=== PATIENT | female | born 1975 | race Caucasian/White ===

== ENCOUNTER 2018-03-08 12:53 | Inpatient (IN) | payer MEDICAID, OTHER ==
[2018-03-08] MEDS ORDERED: ZIPRASIDONE 20 MG VIAL IM STA (13:41)
[2018-03-08] MEDS ORDERED: LORazepam 2 MG/ML INJ IM STA (13:41)
[2018-03-08 14:41] LABS: Amphetamine Screen,Urine Not Detected (NotDetected); Barbiturate Screen,Urine Not Detected (NotDetected); Benzodiazepines Screen,Urine Not Detected (NotDetected); Cocaine Screen,Urine Not Detected (NotDetected); Methadone Screen, Urine Not Detected (NotDetected); Opiate Screen,Urine Not Detected (NotDetected); Oxycodone Screen, Urine Not Detected (NotDetected); Phencyclidine Screen,Urine Not Detected (NotDetected); Tricyclic Antidepressant,Urine Not Detected (NotDetected); Urn Cannabinoid Scrn Detected (NotDetected)
--- NOTE | 2018-03-08 14:46 | ED ---
General Adult HPI - General Chief complaint: Psychiatric Symptoms Stated complaint: Mental Health Time Seen by Provider: 03/08/18 13:08 Source: patient, RN notes reviewed Mode of arrival: ambulatory Limitations: no limitations - History of Present Illness Initial comments: Patient is a 42-year-old female presenting to the emergency department with police escort for agitation. Patient reportedly was at a local restaurant/bar. Patient is very agitated on arrival and limiting evaluation. Patient was verbally abusive. Patient is angry that she is in the emergency department. After medication patient does settle down and is able to hold a conversation. Patient does admit to not sleeping well for the past several days. Patient does admit to having some racing thoughts. Patient has agitation regarding her children's father. She states he is very controlling. Patient does have a history of mental health disease however has been off her medications for more than a year now and overall been doing well. No suicidal or homicidal thoughts. No alcohol or street drug use. No hallucinations. No physical complaints. - Related Data Home Medications Medication Instructions Recorded Confirmed No Known Home Medications [No 03/08/18 03/08/18 Known Home Medications] Allergies Allergy/AdvReac Type Severity Reaction Status Date / Time latex Allergy Itching Verified 03/08/18 23:50 Review of Systems ROS Statement: Those systems with pertinent positive or pertinent negative responses have been documented in the HPI. ROS Other: All systems not noted in ROS Statement are negative. Constitutional: Denies: fever Eyes: Denies: eye pain ENT: Denies: ear pain Respiratory: Denies: cough Cardiovascular: Denies: chest pain Endocrine: Denies: fatigue Gastrointestinal: Denies: abdominal pain Genitourinary: Denies: dysuria Musculoskeletal: Denies: back pain Skin: Denies: rash Neurological: Denies: weakness Psychiatric: Denies: suicidal thoughts Past Medical History Past Medical History: Unable to Obtain History of Any Multi-Drug Resistant Organisms: None Reported Past Surgical History: Section Past Anesthesia/Blood Transfusion Reactions: No Reported Reaction Past Psychological History: Depression Smoking Status: Former smoker Past Alcohol Use History: Occasional Past Drug Use History: None Reported General Exam Limitations: no limitations General appearance: alert Head exam: Present: atraumatic Eye exam: Present: normal appearance, PERRL Neck exam: Present: normal inspection Respiratory exam: Present: normal lung sounds bilaterally Cardiovascular Exam: Present: regular rate, normal rhythm GI/Abdominal exam: Present: soft. Absent: tenderness Neurological exam: Present: alert. Absent: motor sensory deficit Psychiatric exam: Present: agitated Skin exam: Present: normal color Course Vital Signs 03/08/18 03/08/18 03/08/18 13:00 20:00 22:03 Temperature 98 F 98.5 F Pulse Rate 84 106 H 95 Respiratory 18 18 18 Rate Blood Pressure 136/78 121/71 93/71 O2 Sat by Pulse 99 99 100 Oximetry Medical Decision Making - Lab Data Result diagrams: 03/09/18 11:15 03/09/18 11:13 Lab Results 03/08/18 Range/Units 14:03 Urine Opiates Screen Not Detected (NotDetected) Ur Oxycodone Screen Not Detected (NotDetected) Urine Methadone Screen Not Detected (NotDetected) Ur Propoxyphene Screen Not Detected (NotDetected) Ur Barbiturates Screen Not Detected (NotDetected) U Tricyclic Antidepress Not Detected (NotDetected) Ur Phencyclidine Scrn Not Detected (NotDetected) Ur Amphetamines Screen Not Detected (NotDetected) U Methamphetamines Scrn Not Detected (NotDetected) U Benzodiazepines Scrn Not Detected (NotDetected) Urine Cocaine Screen Not Detected (NotDetected) U Marijuana (THC) Screen Detected H (NotDetected) Disposition Clinical Impression: Psychosis Disposition: TRANSFER TO PSYCH HOSP/UNIT Is patient prescribed a controlled substance at d/c from ED?: No
[2018-03-08] MEDS ORDERED: MAG HYDROX/AL HYDROX/SIMETH 30 ML CUP PO PRN (22:15)
[2018-03-08] MEDS ORDERED: ZIPRASIDONE 20 MG VIAL IM PRN (22:15)
[2018-03-08] MEDS ORDERED: LORazepam 2 MG/ML INJ IM PRN (22:17)
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
[2018-03-09] MEDS: ARIPiprazole 10 MG TAB PO SCH (09:55)
[2018-03-09] MEDS: OXcarbazepine 300 MG TAB PO SCH ×2 (09:55→21:43)
[2018-03-09 11:28] LABS: Basophils # (A) 0.1 k/uL (0-0.2); Basophils % (A) 1 %; Eosinophils # (A) 0.2 k/uL (0-0.7); Eosinophils % (A) 2 %; HCT 37.5 % (34.0-46.0); HGB 12.8 gm/dL (11.4-16.0); Lymphocytes % (A) 31 %; MCH 31.1 pg (25.0-35.0); MCHC 34.2 g/dL (31.0-37.0); MCV 90.7 fL (80.0-100.0); Mean Platelet Volume 7.2; Monocytes # (A) 0.5 k/uL (0-1.0); Monocytes % (A) 5 %; Neutrophils # (A) 5.8 k/uL (1.3-7.7); Neutrophils % (A) 60 %; Platelet Count 334 k/uL (150-450); RBC 4.13 m/uL (3.80-5.40); RDW 13.4 % (11.5-15.5); WBC 9.7 k/uL (3.8-10.6)
[2018-03-09 11:40] LABS: ALT 26 U/L (9-52); AST 26 U/L (14-36); Albumin 4.7 g/dL (3.5-5.0); Alkaline Phosphatase 54 U/L (38-126); Anion Gap 17 mmol/L; Blood Urea Nitrogen 13 mg/dL (7-17); Calcium 9.5 mg/dL (8.4-10.2); Carbon Dioxide 22 mmol/L (22-30); Chloride 103 mmol/L (98-107); Glucose 97 mg/dL (74-99); Potassium 3.9 mmol/L (3.5-5.1); Sodium 142 mmol/L (137-145); Total Bilirubin 0.5 mg/dL (0.2-1.3); Total Protein 7.1 g/dL (6.3-8.2)
[2018-03-09] MEDS: NICOTINE 14MG/24HR PATCH TRANSDERM SCH (12:57)
--- NOTE | 2018-03-09 18:58 | CONS ---
CONSULTATION SUBJECTIVE: This is a 42-year-old white female came into the emergency room with a police escort for agitation. She apparently was at a local restaurant bar and she was verbally abusive and angry in the ER, had some racing thoughts she said over the children's father that she had left recently. She has been on history mental health disease. She has been off her medications for over a year. No suicidal or homicidal thoughts. No alcohol or drugs. No hallucinations. She is supposed to be apparently on Pristiq and Lamictal. ALLERGIES: No known drug allergies. REVIEW OF SYSTEMS: Fourteen point review of systems negative except for mentioned in HPI. PAST MEDICAL HISTORY: Bipolar disorder, anxiety, depression. SOCIAL HISTORY: Smoker. PHYSICAL EXAMINATION: Vital signs are stable. Blood pressure 136/70, respiratory 16 to 18, pulse 80 to 84, temp 98, O2 97 to 99%. Labs show positive for marijuana and drug screen, otherwise negative. CARDIOVASCULAR: S1, S2. LUNGS: Clear. GI: Soft. PSYCH: She appears a little bit agitated. Fast speech. ASSESSMENT: Mood disorder, marijuana use, otherwise medically stable. Await psychiatric recommendations. No other home medicines needed except for psychiatric medications. MMODL / IJN: [id number] /
[2018-03-10] MEDS: NICOTINE 14MG/24HR PATCH TRANSDERM SCH (08:55)
[2018-03-10] MEDS: ARIPiprazole 10 MG TAB PO SCH (08:55)
[2018-03-10] MEDS: OXcarbazepine 300 MG TAB PO SCH ×2 (09:38→21:40)
--- NOTE | 2018-03-10 11:53 | P.PN ---
Progress Note - Text Progress Note Date: 03/10/18 Patient was seen for a follow-up examination. She has not been taking her mood stabilizers. She insists that she has agreed to stay here until Wednesday and does not want to take medication. retail worker will call the petitioner to file a new petition and get her papers sent to court since she is refusing to take medications and has history of disruptive and dangerous behavior. This is a white ambulatory female with adequate hygiene. She continues to refuse to take her medication. She is somewhat hyperactive. She has pressured speech and flight of ideas. She is also grandiose and thinks she is doing well and does not need any medication. She denies suicide and homicide thoughts. She is oriented with adequate memory general knowledge etc. Plan: retail worker will contact the petitioner to file another petition, sent her papers to court so that she can be treated. Continue groups and other therapies.
[2018-03-11] MEDS: ARIPiprazole 10 MG TAB PO SCH (09:11)
[2018-03-11] MEDS: NICOTINE 14MG/24HR PATCH TRANSDERM SCH (09:11)
[2018-03-11] MEDS: OXcarbazepine 300 MG TAB PO SCH ×2 (09:11→20:50)
--- NOTE | 2018-03-11 12:08 | P.PN ---
Progress Note - Text Progress Note Date: 03/11/18 Patient was seen for a follow-up examination. She has been refusing to take her medication insisting that she is doing well and does not need any. Counseling has not been effective. When she was told that we had to surrender papers to the court for the metal box maker to decide whether she should be forced to take medication and should be kept here she agreed with that. She continues to be talkative, disruptive in the group etc. This is a white ambulatory female with strong body odor. She gets hyperactive. Her speech is spontaneous pressured with flight of ideas. Her mood is cheerful and affect is labile. She gets tearful quite easily. She denies hallucinations. But she is grandiose with some paranoid thinking. She is oriented with adequate memory. Her insight and judgment are impaired. Plan: Send her papers to the court for the metal box maker to decide whether she should be treated and should have continued hospitalization. Meanwhile continue groups and other therapies.
[2018-03-12] MEDS: NICOTINE 14MG/24HR PATCH TRANSDERM SCH (09:05)
[2018-03-12] MEDS: OXcarbazepine 300 MG TAB PO SCH ×2 (09:07→20:32)
[2018-03-12] MEDS: ARIPiprazole 10 MG TAB PO SCH (09:07)
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
[2018-03-12 22:08] LABS: Amorphous Sediment,Urine Rare /hpf; Appearance,Urine Clear (Clear); Bilirubin,Urine Negative (Negative); Blood,Urine Trace (Negative); Color,Urine Yellow; Glucose,Urine (UA) Negative (Negative); Ketones,Urine Negative (Negative); Leukocyte Esterase,Urine Negative (Negative); Nitrite,Urine Negative (Negative); PH, Urine 6.5 (5.0-8.0); Protein,Urine Negative (Negative); RBC,Urine <1 /hpf (0-5); Squamous Epithelial Cell,Urine 4 /hpf (0-4); Urobilinogen,Urine <2.0 mg/dL (<2.0); WBC,Urine <1 /hpf (0-5)
[2018-03-13] MEDS: NICOTINE 14MG/24HR PATCH TRANSDERM SCH (08:50)
[2018-03-13] MEDS: OXcarbazepine 300 MG TAB PO SCH ×2 (08:51→21:10)
[2018-03-13] MEDS: ARIPiprazole 10 MG TAB PO SCH (08:51)
[2018-03-13] MEDS: LORazepam 1 MG TAB PO PRN (10:31)
--- NOTE | 2018-03-13 18:13 | P.PN ---
Progress Note - Text Progress Note Date: 03/13/18 Interval history: Patient is seen again in cross coverage today. She reports that her mood is doing better today. She feels less fearful today. She does state that she started taking her medication today. Patient states she feels a little bit tired. We discussed that if medication side effect can improve. Mental status exam: She is alert and cooperative with the interview. Her speech is fluent. She is noted to have pen markings on her hands and on her forehead. Says that she was trying to let her roommate know how to get a hold of her. She denies any thoughts of harm to self or others. She does not verbalize any hallucinations. Her thought processes seem to show some disorganization. She does not show any agitation. Mental status exam: We will maintain current psychotropic medication regimen. We'll continue to monitor her compliance. Monitor for any medication side effects. We will monitor her ongoing response to treatment.
[2018-03-14] MEDS: OXcarbazepine 300 MG TAB PO SCH ×3 (09:44→21:18)
[2018-03-14] MEDS: ARIPiprazole 10 MG TAB PO SCH (09:44)
[2018-03-14] MEDS: NICOTINE 14MG/24HR PATCH TRANSDERM SCH (09:44)
--- NOTE | 2018-03-14 12:53 | P.PN ---
Progress Note - Text Progress Note Date: 03/14/18 Patient was seen for a follow-up examination. She had signed her deferral today. She took Trileptal after 12 noon that she didn't take her morning Abilify. She has been hyperactive, intrusive and disruptive in the groups. This is a white ambulatory female with adequate hygiene. She is hyperactive, talkative with pressured speech and flight of ideas. Her mood is cheerful/ elated and affect is labile. She gets tearful quite easily. She continues to deny suicide and homicide thoughts. She feels she is healthy and can do anything she wants to do. She is oriented with adequate memory general knowledge etc. Plan: Continue Abilify 10 mg a day, Trileptal 300 mg twice a day, groups and other therapies.
[2018-03-14] MEDS: LORazepam 1 MG TAB PO PRN (18:12)
[2018-03-15] MEDS: LORazepam 1 MG TAB PO PRN (01:45)
[2018-03-15] MEDS: OXcarbazepine 300 MG TAB PO SCH ×2 (08:50→16:42)
[2018-03-15] MEDS: NICOTINE 14MG/24HR PATCH TRANSDERM SCH (08:50)
[2018-03-15] MEDS: ARIPiprazole 10 MG TAB PO SCH (08:50)
--- NOTE | 2018-03-15 09:53 | P.PN ---
Progress Note - Text Progress Note Date: 03/15/18 Patient was seen for a routine follow-up examination. Patient insists that she has been taking her medication. But according to the records. She never took Abilify and took only one dose of Trileptal on 03/14/2018 at 12:04 PM. Patient says it is too strong and still she took it. She was again counseled about the importance of taking medicine and if she is not taking medicine she will have to go in front of the twist maker on Wednesday. According to the nurses note at 4:15 AM , patient was exercising in the hallway and was trying to look into another patient's room 304. She also had reported of being nervous and received when necessary Ativan. This is a white ambulatory female with adequate hygiene. She is a little hyperactive. Her speech is spontaneous pressured with flight of ideas. Mood is elated and affect is labile. She gets tearful quite easily. She continues to deny suicide and homicide thoughts. She is well oriented with adequate memory, general knowledge etc. Plan: Continue Abilify and Trileptal, groups and other therapies. Nursing staff or the social service technician will contact the court about patient's noncompliance so that she can have a hearing on Wednesday the .
[2018-03-16] MEDS: OXcarbazepine 300 MG TAB PO SCH ×2 (09:21→20:14)
[2018-03-16] MEDS: NICOTINE 14MG/24HR PATCH TRANSDERM SCH (09:21)
[2018-03-16] MEDS: ARIPiprazole 10 MG TAB PO SCH (09:21)
--- NOTE | 2018-03-16 12:15 | P.PN ---
Progress Note - Text Progress Note Date: 03/16/18 Patient was seen for a follow-up examination. She took her medicine yesterday evening and this morning. She does not have any adverse effects so far. She attends groups and sometimes becomes disruptive. She does not have any particular complaints or concerns. This is a white ambulatory female with good hygiene. She gets hyperactive, wanted to look into the books and papers on the desk. She is fairly cooperative. Her speech is spontaneous, pressured with flight of ideas. She really has difficulty time in focusing on the topic discussed. Her mood is cheerful and affect is labile. She gets tearful very easily. She denies hallucinations. But, she gets paranoid and does not trust others. She denies suicide and homicide thoughts. She is well oriented with adequate memory general fund of knowledge etc. Plan: Continue Abilify and Trileptal, groups and other activities. She is likely to have a court hearing on Wednesday.
[2018-03-17] MEDS: ARIPiprazole 10 MG TAB PO SCH (08:41)
[2018-03-17] MEDS: OXcarbazepine 300 MG TAB PO SCH ×2 (08:41→21:11)
[2018-03-17] MEDS: NICOTINE 14MG/24HR PATCH TRANSDERM SCH (08:41)
--- NOTE | 2018-03-17 12:04 | P.PN ---
Progress Note - Text Progress Note Date: 03/17/18 Patient was seen for a routine follow-up examination. She has been attending groups and taking her medications. She said she feels better since she is taking medications. No major behavioral problems. Denies any adverse effects from medications. This is a white ambulatory female with adequate hygiene. She is polite and cooperative. She does not show any psychomotor agitation or retardation. But she is still hyperactive. Her speech is spontaneous pressured with flight of ideas. Her mood is cheerful and affect is appropriate. She continues to deny suicide and homicide thoughts and hallucinations. She does not seem to have any overt grandiose thinking. But she appears to have some paranoid thinking. She is well oriented with good memory concentration general knowledge etc. Plan: Continue Abilify, Trileptal, groups and other therapies.
[2018-03-18] MEDS: NICOTINE 14MG/24HR PATCH TRANSDERM SCH (08:41)
[2018-03-18] MEDS: OXcarbazepine 300 MG TAB PO SCH ×2 (08:41→19:56)
[2018-03-18] MEDS: ARIPiprazole 10 MG TAB PO SCH (08:41)
[2018-03-18] MEDS ORDERED: ARIPiprazole 400 MG VIAL (NO CHARGE) IM ONE (11:02)
--- NOTE | 2018-03-18 11:04 | P.PN ---
Progress Note - Text Progress Note Date: 03/18/18 Patient was seen for a follow-up examination. She had gone to court this morning and apparently she had stipulated. She continues to be hyperactive and at times wears clothes rather in a bizarre fashion. She attends groups. She has been taking her medication without any adverse effect. This is a white ambulatory female with good hygiene. She continues to get hyperactive and talkative with pressured speech and flight of ideas. Her mood is elated. Affect is appropriate to the thought content. She denies hallucinations, but, she makes paranoid statements at times. She denies suicide and homicide thoughts. She is well oriented with adequate memory concentration etc. She was counseled about taking Abilify maintena and she agreed to try it. Plan: Continue Abilify and Trileptal, groups and other activities start on Abilify Maintena.
[2018-03-18] MEDS: MAGNESIUM HYDROXIDE 2,400 MG/10 ML CUP PO PRN (16:48)
[2018-03-19] MEDS: ACETAMINOPHEN TAB 325 MG TAB PO PRN ×2 (05:12→13:47)
[2018-03-19] MEDS: NICOTINE 14MG/24HR PATCH TRANSDERM SCH (08:52)
[2018-03-19] MEDS: ARIPiprazole 10 MG TAB PO SCH (08:52)
[2018-03-19] MEDS: OXcarbazepine 300 MG TAB PO SCH ×2 (08:53→19:55)
[2018-03-19] MEDS: ARTIFICIAL TEARS-HYPROMELLOSE DROPS 15 ML BTL BOTH EYES PRN (12:41)
--- NOTE | 2018-03-19 13:07 | P.PN ---
Progress Note - Text Interval history: The patient is found in her room she follows me to an interview room. She is diagnosed with bipolar disorder and is noted to have symptoms of psychosis. She is on Trileptal for mood stabilization and oral Abilify. It appears she received Abilify maintena yesterday. She reports that she is improving. She feels safe here in the hospital. She describes a desire to be discharged soon. She reports that she is sleeping appetite is stable. Mental status exam: The patient is a female she is alert she's cooperative. She has spontaneous speech. Content of speech is overly inclusive. She is directable in the session. She is reporting no suicidal or homicidal ideation. She reports no auditory or visual hallucinations. She denies having any specific delusions although documentation suggests she reported some yesterday. She demonstrates no verbal or physical aggressiveness no abnormal involuntary movements. Plan: The patient seems to be improving during the course of the hospitalization. We will encourage her continued participation in the milieu we will monitor her for safety. Vital signs reviewed. She has no questions regarding her psychotropic medication.
[2018-03-19] MEDS: MAGNESIUM HYDROXIDE 2,400 MG/10 ML CUP PO PRN (19:55)
[2018-03-20] MEDS: ACETAMINOPHEN TAB 325 MG TAB PO PRN ×4 (03:42→22:03)
[2018-03-20] MEDS: NICOTINE 14MG/24HR PATCH TRANSDERM SCH (08:47)
[2018-03-20] MEDS: OXcarbazepine 300 MG TAB PO SCH ×2 (08:47→20:12)
[2018-03-20] MEDS: ARIPiprazole 10 MG TAB PO SCH (08:47)
[2018-03-20] MEDS: ARTIFICIAL TEARS-HYPROMELLOSE DROPS 15 ML BTL BOTH EYES PRN (09:19)
--- NOTE | 2018-03-20 12:47 | P.PN ---
Progress Note - Text Interval history: The patient is found in the hallway she follows me to an interview room. She indicates she feels bothered by others on the unit and she states she's been rude to them. Staff report that the patient has been provoking a few other peers where she is making derogatory statements. The patient has difficulty explaining this behavior and she does seem more disorganized today in spontaneous conversation. Mental status exam: The patient is cooperative she is directable she does seem to have more disorganization of thought. She is reporting no suicidal or homicidal ideation. She indicates that she feels defensive that others are trying to say or do things to her. She demonstrates no verbal or physical aggressiveness during the session she demonstrates no abnormal involuntary movements. Insight and judgment are impaired. She is endorsing no auditory or visual hallucinations. Plan: The patient will continue on her current psychotropic medications. We will continue to monitor her for safety and encourage her participation in the milieu. She requires continued psychiatric hospitalization.
[2018-03-21] MEDS: LORazepam 1 MG TAB PO PRN (01:19)
[2018-03-21] MEDS: ARTIFICIAL TEARS-HYPROMELLOSE DROPS 15 ML BTL BOTH EYES PRN ×2 (02:15→09:11)
[2018-03-21] MEDS: ACETAMINOPHEN TAB 325 MG TAB PO PRN ×3 (06:21→18:53)
[2018-03-21 08:51] VITALS: BMI 23.3
[2018-03-21] MEDS: OXcarbazepine 300 MG TAB PO SCH ×2 (08:57→20:07)
[2018-03-21] MEDS: NICOTINE 14MG/24HR PATCH TRANSDERM SCH (08:57)
[2018-03-21] MEDS: ARIPiprazole 10 MG TAB PO SCH (08:57)
--- NOTE | 2018-03-21 14:51 | P.PN ---
Subjective Progress Note Date: 03/21/18 Principal diagnosis: Other specified bipolar and related disorder, Borderline personality features, Cannabis use disorder moderate to severe I reviewed the medical record, interviewed the patient and discussed her treatment and treatment plan during team meeting. She a patient of Dr. Tobias who has a history of a bipolar disorder. She received a 60/90 day involuntary treatment order on 03/18/2018. Other patients have complained about her intrusive behavior. Last night, she was in the hallway yelling and swearing at a male peer. Staff reports that she appears paranoid. She did not sleep last night and over the last 6 days slept at the most 4 hours. According to the MAR she's been compliant with staff her prescribed psychotropic medications-Abilify 10 mg daily and Trileptal 300 mg twice a day. She was without complaint or concern. She attributed her behavior as a reaction to other patients on the unit. Similarly, she attributed to her lack of sleep to the activity and on the unit and behavior other patients. Objective - Vital Signs Vital signs: Vital Signs Temp 98.2 F 03/21/18 01:15 Pulse 85 03/21/18 01:15 Resp 14 03/21/18 01:15 BP 126/85 03/21/18 01:15 Pulse Ox 100 03/08/18 22:48 Intake & Output 03/20/18 03/21/18 03/21/18 18:59 06:59 18:59 Weight 58 kg 58 kg - Psychiatric Psychiatric Comment(s): She presented as a neatly groomed and casually dressed 42-year-old [place] female who was pleasant on approach. She was wearing makeup. She made eye contact and appeared to attend to the interview. She had a bright facial expression. She was alert and oriented to person, place and time. She showed no abnormality of psychomotor activity. She was not restless or agitated. She had no abnormal movements. Her speech was pressured. She had no articulation difficulties. Affect was elevated but appropriate. She denied suicidal ideation, wishes or homicidal ideation. She denied feeling hopeless, helpless or worthless. She did not express ideas reference, paranoid ideation or delusional thoughts. She demonstrated flight of ideas but no clang associations or neologisms. She denied hallucinations and did not appear to be responding to internal stimuli. - Labs CBC & Chem 7: 03/09/18 11:15 03/09/18 11:13 Assessment and Plan Assessment: Overall, she is markedly mentally ill and mentally improve from admission. (1) Bipolar disorder Current Visit: No Status: Acute Priority: High Code(s): F31.9 - BIPOLAR DISORDER, UNSPECIFIED SNOMED Code(s): 51067402 Plan: Continue inpatient hospitalization due to severity of the manic symptoms. Continue Abilify 10 mg daily but increase Trileptal to 600 mg twice a day. Continue to monitor for safety and encourage participation in therapeutic groups and activities. Evaluate clinical status response to treatment on a daily basis.
[2018-03-22] MEDS: ACETAMINOPHEN TAB 325 MG TAB PO PRN ×2 (05:29→20:17)
[2018-03-22] MEDS: NICOTINE 14MG/24HR PATCH TRANSDERM SCH (08:08)
[2018-03-22] MEDS: OXcarbazepine 300 MG TAB PO SCH ×2 (08:08→20:15)
[2018-03-22] MEDS: ARIPiprazole 10 MG TAB PO SCH (08:08)
--- NOTE | 2018-03-22 14:28 | P.PN ---
Subjective Progress Note Date: 03/22/18 Principal diagnosis: Other specified bipolar and related disorder, Borderline personality features, Cannabis use disorder moderate to severe I reviewed the medical record, interviewed the patient and discussed her treatment and treatment plan during team meeting. She denied concerns other than discharge. She sought reassurance that she will be able attend her younger daughter's birthday on the . She denied side effects to the increased dose of Trileptal. She attributes her manic episode and this hospitalization to the use of marijuana that she suspects was placed with another drug (her UDS on admission was positive only for cannabinoids). Prior to admission she was using cannabis oil and smoking marijuana. She is attending group and the notes by the group therapist indicates that she is more focused and less restless and intrusive. She alleged that she is sleeping well although the sleep record indicates she only slept 2 hours last night. Objective - Vital Signs Vital signs: Vital Signs Temp 98.2 F 03/22/18 00:10 Pulse 85 03/22/18 00:10 Resp 18 03/22/18 00:10 BP 148/84 03/22/18 00:10 Pulse Ox 99 03/22/18 00:10 Intake & Output 03/21/18 03/22/18 03/22/18 18:59 06:59 18:59 Weight 58 kg - Psychiatric Psychiatric Comment(s): She presented as a neatly groomed and casually dressed 42-year-old Serbian female who was pleasant on approach. She made eye contact and attended to the interview. She had a blunted but bright facial expression. She was alert and oriented to person, place and time. She showed no abnormality of psychomotor activity. She was not restless or agitated. She had no abnormal movements. Her speech was not pressured. She had no articulation difficulties. Affect was blunted and somewhat depressed. She denied suicidal ideation, wishes or homicidal ideation. She denied feeling hopeless, helpless or worthless. She did not express ideas reference, paranoid ideation or delusional thoughts. She demonstrated flight of ideas but no clang associations or neologisms. She denied hallucinations and did not appear to be responding to internal stimuli. - Labs CBC & Chem 7: 03/09/18 11:15 03/09/18 11:13 Assessment and Plan Assessment: Overall, she is moderately mentally ill and much improve from admission. (1) Bipolar disorder Current Visit: No Status: Acute Priority: High Code(s): F31.9 - BIPOLAR DISORDER, UNSPECIFIED SNOMED Code(s): 89912430 Plan: Continue inpatient hospitalization due to severity of the manic symptoms. Continue Abilify 10 mg daily and Trileptal to 600 mg twice a day. Consider obtaining an oxcarbazepine level prior to discharge. Continue to monitor for safety and encourage participation in therapeutic groups and activities. Evaluate clinical status response to treatment on a daily basis.
[2018-03-23] MEDS: ARTIFICIAL TEARS-HYPROMELLOSE DROPS 15 ML BTL BOTH EYES PRN (08:03)
[2018-03-23] MEDS: OXcarbazepine 300 MG TAB PO SCH ×2 (08:04→19:57)
[2018-03-23] MEDS: ARIPiprazole 10 MG TAB PO SCH (08:04)
[2018-03-23] MEDS: NICOTINE 14MG/24HR PATCH TRANSDERM SCH (08:04)
[2018-03-23] MEDS: ACETAMINOPHEN TAB 325 MG TAB PO PRN (11:01)
--- NOTE | 2018-03-23 15:15 | P.PN ---
Subjective Progress Note Date: 03/23/18 Principal diagnosis: Bipolar disorder most recent episode manic without psychotic features, Cannabis use disorder moderate to severe I reviewed the medical record, interviewed the patient and discussed her treatment and treatment plan during team meeting. Her primary concern was to be discharged so that she can be at her youngest daughter's birthday. She denied feeling depressed or having thoughts of or suicide. She talked about feeling anxious about discharge and returning home. She talked quite a bit about the difficulty she has with the father of her children. Apparently there been ongoing issues with visitation. She denied experiencing such psychotic symptoms as auditory, visual or olfactory hallucinations, ideas reference, thought insertion, thought broadcasting or thought control. She is attending group and the notes by the group therapist indicates that she is more focused and less restless and intrusive. She alleged that she is sleeping well although the sleep record indicates she only slept 2 hours last night. Objective - Vital Signs Vital signs: Vital Signs Temp 99.2 F 03/23/18 08:07 Pulse 113 H 03/23/18 07:10 Resp 16 03/23/18 07:10 BP 143/66 03/23/18 07:10 Pulse Ox 99 03/22/18 00:10 - Psychiatric Psychiatric Comment(s): She presented as a neatly groomed and casually dressed 42-year-old German female who was pleasant on approach. She made eye contact and attended to the interview. She had a blunted but bright facial expression. She was alert and oriented to person, place and time. She showed no abnormality of psychomotor activity. She was not restless or agitated. She had no abnormal movements. Her speech was not pressured. She had no articulation difficulties. Affect was blunted, stable and appropriate. She denied suicidal ideation, wishes or homicidal ideation. She denied feeling hopeless, helpless or worthless. She did not express ideas reference, paranoid ideation or delusional thoughts. She did not demonstrated flight of ideas, clang associations or neologisms. She denied hallucinations and did not appear to be responding to internal stimuli. - Labs CBC & Chem 7: 03/09/18 11:15 03/09/18 11:13 Assessment and Plan Assessment: She appears mildly sedated. She is not depressed, hypomanic or manic. There is no evidence of psychotic symptoms. Overall, she is much to improve from admission. (1) Bipolar disorder Current Visit: No Status: Acute Priority: High Code(s): F31.9 - BIPOLAR DISORDER, UNSPECIFIED SNOMED Code(s): 04655604 (2) Cannabis use disorder, moderate, dependence Current Visit: Yes Status: Chronic Priority: Medium Code(s): F12.20 - CANNABIS DEPENDENCE, UNCOMPLICATED SNOMED Code(s): 95868282 Plan: Continue inpatient hospitalization due to severity of the manic symptoms. Decrease Abilify 7.5 mg daily to decrease daytime sedation, continue Trileptal to 600 mg twice a day. Oxcarbazepine level tomorrow AM. Continue to monitor for safety and encourage participation in therapeutic groups and activities. Evaluate clinical status response to treatment on a daily basis.
[2018-03-24 06:47] VITALS: BP 105/68; PULSE 95; RESP 18; TEMP 98.4
[2018-03-24] MEDS ORDERED: ARIPiprazole 5 MG TAB PO SCH (09:00)
[2018-03-24] MEDS: NICOTINE 14MG/24HR PATCH TRANSDERM SCH (09:14)
[2018-03-24] MEDS: OXcarbazepine 300 MG TAB PO SCH (09:15)
--- NOTE | 2018-03-24 14:14 | P.DS ---
Providers Date of admission: 03/08/18 22:00 Attending physician: Rivera Cee MD Consults: 03/08/18 22:15 Consult Physician Routine Consulting Provider: Rivera Hutchins Consult Reason/Comments: follow up H & P Do you want consulting provider notified?: Yes Primary care physician: Rivera Hutchins - Discharge Diagnosis(es) (1) Bipolar disorder Current Visit: No Status: Acute Priority: High (2) Cannabis use disorder, moderate, dependence Current Visit: Yes Status: Chronic Priority: Medium Hospital Course: The patient is a 42-year-old [place]ian Irish female who has a history of a bipolar illness. She was admitted involuntarily to the psychiatric unit with history of agitation and aggressive behavior. On admission she was restless and hyperactive. Her speech was pressured and she demonstrated flight of ideas. His mood was elevated, irritable and labile. She express grandiosity and persecutory thoughts. She has a history of marijuana use and talked about using "cannabis oil" as well as smoking marijuana. Her UDS was positive for cannabinoids. We admitted to the psychiatric unit initially under the care of Dr. Tobias. We provided a comprehensive biopsychosocial assessment. The research consultant sheet heater helper completed initial physical exam and medical history and diagnosis marijuana use. We obtained a 60/90 day involuntary treatment order following her probate hearing. We diagnosed bipolar disorder with acute manic episode and prescribed Abilify and Trileptal. We titrated the Abilify dose up to 10 mg per day and Trileptal to 600 mg by mouth twice a day. Her manic symptoms gradually resolved. As her manic symptoms resolve she participated in therapeutic groups and activities. She required occasional administration of by mouth lorazepam for agitation and restlessness. Because she complained of sedation we decreased the Abilify to 7.5 mg. The time of discharge she presented as a casually dressed and groomed 42-year- old female who was pleasant on approach. She made eye contact and attended to interview. She had a calm and appropriate facial expression. She was alert and oriented to person, place and time. She showed no abnormality of psychomotor activity she has not reckless restless or agitated. Her speech was spontaneous with normal rate, rhythm and volume. Affect was stable and appropriate. She denied suicidal ideation or wishes. She denied homicidal ideation. She denied depressive cognitions such as hopelessness, helplessness or worthlessness. She did not express ideas reference, paranoid ideation or delusional thoughts. Her thinking was abstract and associations were coherent, logical and goal directed. She did not demonstrate clang associations, perseveration or neologisms. She denied hallucinations and did not appear to be responding to internal stimuli. Patient Condition at Discharge: Stable Plan - Discharge Summary New Discharge Prescriptions: New ARIPiprazole [Abilify] 7.5 mg PO DAILY #45 tab Nicotine 14Mg/24Hr Patch [Habitrol] 1 patch TRANSDERM DAILY #14 patch OXcarbazepine [Trileptal] 600 mg PO BID #120 tab Discharge Medication List ARIPiprazole [Abilify] 7.5 mg PO DAILY #45 tab 03/24/18 [Rx] Nicotine 14Mg/24Hr Patch [Habitrol] 1 patch TRANSDERM DAILY #14 patch 03/24/18 [ Rx] OXcarbazepine [Trileptal] 600 mg PO BID #120 tab 03/24/18 [Rx] Follow up Appointment(s)/Referral(s): [facility] [Outside] - 1-2 Days (walk in intake within 24 hrs of dc. intake office closed today at noon. Wednesday 830 - 300 Wednesday 830 - 300) Rivera Hutchins MD [Primary Care Provider] - 1-2 days Patient Instructions/Handouts: How to Stop Smoking (DC), Bipolar Disorder (DC) , Cannabis Abuse (DC) Activity/Diet/Wound Care/Special Instructions: Remove all weapons and firearms from the home; Refrain from street drugs and alcohol; Activity and diet as tolerated; Follow-up with your PCP in 1-2 days; Keep all follow-up appointments for continuity of care; If you need your prescriptions refilled, contact your PCP for medical meds. and your aftercare psychiatrist for psych. meds.; If you have any problems, call the Crisis Line at or [phone] in case of emergency or go to the nearest emergency room for a psychiatric evaluation. Discharge Disposition: HOME SELF-CARE
== END 2018-03-24 14:38 | disposition home or self-care (01) | DRG 885 ==
LOC: EC 12:53 → 3MHU 22:00
PROVIDERS: ADMIT Psychiatry & Neurology Psychiatry; ATTEND Psychiatry & Neurology Psychiatry
DX: F31.2 Bipolar disorder, current episode manic severe with psychotic features (principal); F12.20 Cannabis dependence, uncomplicated; F60.3 Borderline personality disorder; Z87.81 Personal history of (healed) traumatic fracture; Z87.891 Personal history of nicotine dependence; Z91.040 Latex allergy status
CPT/HCPCS: 80053; 80183; 80306; 81001; 84443; 85025; 96372; 99285

== ENCOUNTER 2018-04-12 21:25 | Emergency (ER) | payer OTHER ==
[2018-04-12 21:29] VITALS: BP 129/78; PULSE 107; RESP 18; TEMP 98.8
--- NOTE | 2018-04-12 22:09 | ED ---
Psych HPI - General Source: patient, police Mode of arrival: ambulatory <Ginny Etienne - Last Filed: 04/12/18 22:07> <Candy iRos - Last Filed: 04/13/18 08:47> - General Chief Complaint: Psychiatric Symptoms Stated Complaint: mental health Time Seen by Provider: 04/12/18 21:40 - History of Present Illness Initial Comments: 42-year-old female patient presents the emergency department today for a psychiatric evaluation. Patient was brought in by the police for a court- ordered psych eval. Patient states she is unsure why she is here. States she has been paranoid recently but nothing unusual. States that she has been taking her medications as directed. She denies any suicidal or homicidal ideation. Patient is yelling and agitated during history. States that she feels well physically and has no physical concerns. Patient denies any recent rash, fever, chills, shortness breath, chest pain, abdominal pain, nausea, vomiting, diarrhea, constipation, back pain, numbness, tingling, dizziness, weakness, hematuria, dysuria, urinary urgency, urinary frequency, headache, visual changes, or any other complaints. (Ginny Etienne) - Related Data Previous Rx's Medication Instructions Recorded ARIPiprazole [Abilify] 7.5 mg PO DAILY #45 tab 03/24/18 Nicotine 14Mg/24Hr Patch [Habitrol] 1 patch TRANSDERM DAILY #14 patch 03/24/18 OXcarbazepine [Trileptal] 600 mg PO BID #120 tab 03/24/18 Allergies Allergy/AdvReac Type Severity Reaction Status Date / Time latex Allergy Itching Verified 04/12/18 21:56 Review of Systems ROS Other: All systems not noted in ROS Statement are negative. <Ginny Etienne - Last Filed: 04/12/18 22:07> ROS Other: All systems not noted in ROS Statement are negative. <Candy Rios - Last Filed: 04/13/18 08:47> ROS Statement: Those systems with pertinent positive or pertinent negative responses have been documented in the HPI. Past Medical History Past Medical History: Unable to Obtain Additional Past Medical History / Comment(s): pt c/o back pain History of Any Multi-Drug Resistant Organisms: None Reported Past Surgical History: Section Past Anesthesia/Blood Transfusion Reactions: No Reported Reaction Past Psychological History: Depression Smoking Status: Former smoker Past Alcohol Use History: Occasional Past Drug Use History: Prescription Drug Abuse <Ginny Etienne - Last Filed: 04/12/18 22:07> General Exam Limitations: no limitations General appearance: alert, in no apparent distress, other (This is a well- developed, well-nourished adult female patient in no acute distress. Vital signs upon presentation are temperature 98.8F, pulse 107, respirations 18, blood pressure 129/78, pulse ox 100% on room air.) Eye exam: Present: normal appearance, PERRL, EOMI. Absent: scleral icterus, conjunctival injection, periorbital swelling ENT exam: Present: normal exam, normal oropharynx, mucous membranes moist Respiratory exam: Present: normal lung sounds bilaterally. Absent: respiratory distress, wheezes, rales, rhonchi, stridor Cardiovascular Exam: Present: regular rate, normal rhythm, normal heart sounds. Absent: systolic murmur, diastolic murmur, rubs, gallop, clicks GI/Abdominal exam: Present: soft, normal bowel sounds. Absent: distended, tenderness, guarding, rebound, rigid Psychiatric exam: Present: agitated, other (angry). Absent: homicidal ideation , suicidal ideation Skin exam: Present: warm, dry, intact, normal color. Absent: rash <Ginny Etienne - Last Filed: 04/12/18 22:07> Vital Signs 04/12/18 21:26 Temperature 98.8 F Pulse Rate 107 H Respiratory 18 Rate Blood Pressure 129/78 O2 Sat by Pulse 100 Oximetry Medical Decision Making - Lab Data Result diagrams: 04/12/18 23:57 04/12/18 23:57 <Candy Rios - Last Filed: 04/13/18 08:47> - Lab Data Lab Results 04/12/18 04/12/18 04/12/18 Range/Units 22:23 22:23 23:57 WBC 9.9 (3.8-10.6) k/uL RBC 4.04 (3.80-5.40) m/uL Hgb 12.4 (11.4-16.0) gm/dL Hct 37.5 (34.0-46.0) % MCV 92.9 (80.0-100.0) fL MCH 30.8 (25.0-35.0) pg MCHC 33.2 (31.0-37.0) g/dL RDW 13.5 (11.5-15.5) % Plt Count 374 (150-450) k/uL Neutrophils % 67 % Lymphocytes % 23 % Monocytes % 6 % Eosinophils % 1 % Basophils % 1 % Neutrophils # 6.7 (1.3-7.7) k/uL Lymphocytes # 2.3 (1.0-4.8) k/uL Monocytes # 0.6 (0-1.0) k/uL Eosinophils # 0.1 (0-0.7) k/uL Basophils # 0.1 (0-0.2) k/uL Sodium (137-145) mmol/L Potassium (3.5-5.1) mmol/L Chloride (98-107) mmol/L Carbon Dioxide (22-30) mmol/L Anion Gap mmol/L BUN (7-17) mg/dL Creatinine (0.52-1.04) mg/dL Est GFR (CKD-EPI)AfAm (>60 ml/min/1.73 sqM) Est GFR (CKD-EPI)NonAf (>60 ml/min/1.73 sqM) Glucose (74-99) mg/dL Calcium (8.4-10.2) mg/dL Total Bilirubin (0.2-1.3) mg/dL AST (14-36) U/L ALT (9-52) U/L Alkaline Phosphatase (38-126) U/L Total Protein (6.3-8.2) g/dL Albumin (3.5-5.0) g/dL Urine Color Urine Appearance (Clear) Urine pH (5.0-8.0) Ur Specific [place] (1.001-1.035) Urine Protein (Negative) Urine Glucose (UA) (Negative) Urine Ketones (Negative) Urine Blood (Negative) Urine Nitrite (Negative) Urine Bilirubin (Negative) Urine Urobilinogen (<2.0) mg/dL Ur Leukocyte Esterase (Negative) Ur Squamous Epith Cells (0-4) /hpf Urine Mucus (None) /hpf Urine HCG, Qual Not Detected (Not Detectd) Urine Opiates Screen Not Detected (NotDetected) Ur Oxycodone Screen Not Detected (NotDetected) Urine Methadone Screen Not Detected (NotDetected) Ur Propoxyphene Screen Not Detected (NotDetected) Ur Barbiturates Screen Not Detected (NotDetected) U Tricyclic Antidepress Not Detected (NotDetected) Ur Phencyclidine Scrn Not Detected (NotDetected) Ur Amphetamines Screen Not Detected (NotDetected) U Methamphetamines Scrn Not Detected (NotDetected) U Benzodiazepines Scrn Not Detected (NotDetected) Urine Cocaine Screen Not Detected (NotDetected) U Marijuana (THC) Screen Detected H (NotDetected) 04/12/18 04/12/18 Range/Units 23:57 23:57 WBC (3.8-10.6) k/uL RBC (3.80-5.40) m/uL Hgb (11.4-16.0) gm/dL Hct (34.0-46.0) % MCV (80.0-100.0) fL MCH (25.0-35.0) pg MCHC (31.0-37.0) g/dL RDW (11.5-15.5) % Plt Count (150-450) k/uL Neutrophils % % Lymphocytes % % Monocytes % % Eosinophils % % Basophils % % Neutrophils # (1.3-7.7) k/uL Lymphocytes # (1.0-4.8) k/uL Monocytes # (0-1.0) k/uL Eosinophils # (0-0.7) k/uL Basophils # (0-0.2) k/uL Sodium 142 (137-145) mmol/L Potassium 3.9 (3.5-5.1) mmol/L Chloride 103 (98-107) mmol/L Carbon Dioxide 26 (22-30) mmol/L Anion Gap 13 mmol/L BUN 15 (7-17) mg/dL Creatinine 0.60 (0.52-1.04) mg/dL Est GFR (CKD-EPI)AfAm >90 (>60 ml/min/1.73 sqM) Est GFR (CKD-EPI)NonAf >90 (>60 ml/min/1.73 sqM) Glucose 99 (74-99) mg/dL Calcium 9.9 (8.4-10.2) mg/dL Total Bilirubin 0.4 (0.2-1.3) mg/dL AST 24 (14-36) U/L ALT 29 (9-52) U/L Alkaline Phosphatase 59 (38-126) U/L Total Protein 7.6 (6.3-8.2) g/dL Albumin 4.8 (3.5-5.0) g/dL Urine Color Colorless Urine Appearance Clear (Clear) Urine pH 5.5 (5.0-8.0) Ur Specific [place] 1.005 (1.001-1.035) Urine Protein Negative (Negative) Urine Glucose (UA) Negative (Negative) Urine Ketones Trace H (Negative) Urine Blood Trace H (Negative) Urine Nitrite Negative (Negative) Urine Bilirubin Negative (Negative) Urine Urobilinogen <2.0 (<2.0) mg/dL Ur Leukocyte Esterase Negative (Negative) Ur Squamous Epith Cells <1 (0-4) /hpf Urine Mucus Rare H (None) /hpf Urine HCG, Qual (Not Detectd) Urine Opiates Screen (NotDetected) Ur Oxycodone Screen (NotDetected) Urine Methadone Screen (NotDetected) Ur Propoxyphene Screen (NotDetected) Ur Barbiturates Screen (NotDetected) U Tricyclic Antidepress (NotDetected) Ur Phencyclidine Scrn (NotDetected) Ur Amphetamines Screen (NotDetected) U Methamphetamines Scrn (NotDetected) U Benzodiazepines Scrn (NotDetected) Urine Cocaine Screen (NotDetected) U Marijuana (THC) Screen (NotDetected) Disposition <Ginny Etienne - Last Filed: 04/12/18 22:07> - Out of Hospital Transfer - Req. Specs Out of Hospital Transfer - Requested Specifics: Psychiatric Non-ICU (Patient will be transferred to [facility], transfer paperwork was done this morning) <Candy Rios - Last Filed: 04/13/18 08:47> Clinical Impression: Psychosis Disposition: TRANSFER TO PSYCH HOSP/UNIT Condition: Good Referrals: None,Stated [Primary Care Provider] - 1-2 days
[2018-04-12] MEDS ORDERED: LORazepam 2 MG/ML INJ IM STA (22:33)
[2018-04-12] MEDS ORDERED: ZIPRASIDONE 20 MG VIAL IM STA (22:33)
[2018-04-12 22:56] LABS: Amphetamine Screen,Urine Not Detected (NotDetected); Barbiturate Screen,Urine Not Detected (NotDetected); Benzodiazepines Screen,Urine Not Detected (NotDetected); Cocaine Screen,Urine Not Detected (NotDetected); Methadone Screen, Urine Not Detected (NotDetected); Opiate Screen,Urine Not Detected (NotDetected); Oxycodone Screen, Urine Not Detected (NotDetected); Phencyclidine Screen,Urine Not Detected (NotDetected); Tricyclic Antidepressant,Urine Not Detected (NotDetected); Urn Cannabinoid Scrn Detected (NotDetected)
[2018-04-13 05:00] LABS: ALT 29 U/L (9-52); AST 24 U/L (14-36); Albumin 4.8 g/dL (3.5-5.0); Alkaline Phosphatase 59 U/L (38-126); Anion Gap 13 mmol/L; Basophils # (A) 0.1 k/uL (0-0.2); Basophils % (A) 1 %; Blood Urea Nitrogen 15 mg/dL (7-17); Calcium 9.9 mg/dL (8.4-10.2); Carbon Dioxide 26 mmol/L (22-30); Chloride 103 mmol/L (98-107); Eosinophils # (A) 0.1 k/uL (0-0.7); Eosinophils % (A) 1 %; Glucose 99 mg/dL (74-99); HCT 37.5 % (34.0-46.0); HGB 12.4 gm/dL (11.4-16.0); Lymphocytes # (A) 2.3 k/uL (1.0-4.8); Lymphocytes % (A) 23 %; MCH 30.8 pg (25.0-35.0); MCHC 33.2 g/dL (31.0-37.0); MCV 92.9 fL (80.0-100.0); Mean Platelet Volume 6.9; Monocytes # (A) 0.6 k/uL (0-1.0); Monocytes % (A) 6 %; Neutrophils # (A) 6.7 k/uL (1.3-7.7); Neutrophils % (A) 67 %; Platelet Count 374 k/uL (150-450); Potassium 3.9 mmol/L (3.5-5.1); RBC 4.04 m/uL (3.80-5.40); RDW 13.5 % (11.5-15.5); Sodium 142 mmol/L (137-145); Total Bilirubin 0.4 mg/dL (0.2-1.3); Total Protein 7.6 g/dL (6.3-8.2); WBC 9.9 k/uL (3.8-10.6)
[2018-04-13 05:39] LABS: Appearance,Urine Clear (Clear); Bilirubin,Urine Negative (Negative); Blood,Urine Trace (Negative); Color,Urine Colorless; Glucose,Urine (UA) Negative (Negative); Ketones,Urine Trace (Negative); Leukocyte Esterase,Urine Negative (Negative); Mucus,Urine Rare /hpf; Nitrite,Urine Negative (Negative); PH, Urine 5.5 (5.0-8.0); Protein,Urine Negative (Negative); Specific Gravity,Urine 1.005 (1.001-1.035); Squamous Epithelial Cell,Urine <1 /hpf (0-4); Urobilinogen,Urine <2.0 mg/dL (<2.0)
[2018-04-13] MEDS ORDERED: ZIPRASIDONE 20 MG VIAL IM STA (05:48)
[2018-04-13] MEDS ORDERED: LORazepam 2 MG/ML INJ IM STA (05:49)
== END 2018-04-13 10:51 ==
LOC: EC 21:25
DX: F29 Unspecified psychosis not due to a substance or known physiological condition (principal); F32.9 Major depressive disorder, single episode, unspecified; Z87.891 Personal history of nicotine dependence; Z91.040 Latex allergy status
CPT/HCPCS: 82075; 36415; 80053; 85025; 81001; 81025; 80306; 99285; 96372 ×4; J2060 ×2; J3486 ×2

== ENCOUNTER 2024-03-02 11:53 | Emergency (ER) | payer OTHER ==
[2024-03-02] MEDS: SODIUM CHLORIDE 0.9% 1,000 ML BAG IV STA (13:30)
[2024-03-02] MEDS: ORPHENADRINE 30 MG/ML 2 ML VIAL IM STA (13:31)
[2024-03-02] MEDS: KETOROLAC 15 MG/ML 1 ML VIAL IVP STA (13:31)
[2024-03-02 13:34] LABS: Basophils # (A) 0.1 k/uL (0-0.2); Basophils % (A) 1 %; Eosinophils # (A) 0.3 k/uL (0-0.7); Eosinophils % (A) 2 %; HCT 40.9 % (34.0-46.0); HGB 13.3 gm/dL (11.4-16.0); Lymphocytes # (A) 2.4 k/uL (1.0-4.8); Lymphocytes % (A) 21 %; MCH 30.1 pg (25.0-35.0); MCHC 32.6 g/dL (31.0-37.0); MCV 92.4 fL (80.0-100.0); Mean Platelet Volume 8.1; Monocytes # (A) 0.5 k/uL (0-1.0); Monocytes % (A) 4 %; Neutrophils # (A) 8.2 k/uL (1.3-7.7); Neutrophils % (A) 71 %; Platelet Count 291 k/uL (150-450); RBC 4.42 m/uL (3.80-5.40); RDW 12.8 % (11.5-15.5); WBC 11.5 k/uL (3.8-10.6)
[2024-03-02 13:51] LABS: ALT 36 U/L (4-34); AST 33 U/L (14-36); African American GFR (CKD) >90 (>60 ml/min/1.73 sqM); Albumin 4.8 g/dL (3.5-5.0); Alkaline Phosphatase 82 U/L (38-126); Anion Gap 5 mmol/L; Blood Urea Nitrogen 8 mg/dL (7-17); Calcium 9.6 mg/dL (8.4-10.2); Carbon Dioxide 28 mmol/L (22-30); Chloride 103 mmol/L (98-107); Glucose 96 mg/dL (74-99); Magnesium 1.8 mg/dL (1.6-2.3); Non-African American GFR(CKD) >90 (>60 ml/min/1.73 sqM); Potassium 4.3 mmol/L (3.5-5.1); Sodium 136 mmol/L (137-145); Total Bilirubin 0.5 mg/dL (0.2-1.3); Total Protein 7.6 g/dL (6.3-8.2)
--- NOTE | 2024-03-02 15:39 | ED ---
General Adult HPI - General Chief complaint: Neck Pain/Injury Stated complaint: Neck Pain Time Seen by Provider: 03/02/24 12:05 Source: patient Mode of arrival: ambulatory Limitations: no limitations - History of Present Illness Initial comments: 48-year-old female who presents to the emergency department with myalgias. States that she has been having neck pain, back pain and abdominal cramping. Symptoms to started prior to hospital arrival. Patient states that has happened to her before and she normally takes muscle relaxer however did not take it today. Patient is concerned for dehydration due to the diffuse cramping. Patient does have chronic pain and takes [place]. She denies any fevers. No changes in her bowel or bladder habits. No other alleviating, precipitating or modifying factors - Related Data Previous Rx's Medication Instructions Recorded ARIPiprazole [Abilify] 7.5 mg PO DAILY #45 tab 03/24/18 Nicotine 14Mg/24Hr Patch [Habitrol] 1 patch TRANSDERM DAILY #14 patch 03/24/18 OXcarbazepine [Trileptal] 600 mg PO BID #120 tab 03/24/18 Cyclobenzaprine [Flexeril] 10 mg PO TID PRN #30 tab 03/02/24 Allergies Allergy/AdvReac Type Severity Reaction Status Date / Time latex Allergy Itching Verified 03/02/24 11:59 Review of Systems ROS Statement: Those systems with pertinent positive or pertinent negative responses have been documented in the HPI. ROS Other: All systems not noted in ROS Statement are negative. Past Medical History Past Medical History: Unable to Obtain Additional Past Medical History / Comment(s): pt c/o back pain History of Any Multi-Drug Resistant Organisms: None Reported Past Surgical History: Section Past Anesthesia/Blood Transfusion Reactions: No Reported Reaction Past Psychological History: Depression Past Alcohol Use History: Occasional Past Drug Use History: Prescription Drug Abuse General Exam Limitations: no limitations General appearance: alert, in no apparent distress Head exam: Present: atraumatic, normocephalic, normal inspection Eye exam: Present: normal appearance, PERRL, EOMI. Absent: scleral icterus, conjunctival injection, periorbital swelling ENT exam: Present: normal exam, mucous membranes moist Neck exam: Present: normal inspection. Absent: tenderness, meningismus, lymphadenopathy Respiratory exam: Present: normal lung sounds bilaterally. Absent: respiratory distress, wheezes, rales, rhonchi, stridor Cardiovascular Exam: Present: regular rate, normal rhythm, normal heart sounds. Absent: systolic murmur, diastolic murmur, rubs, gallop, clicks GI/Abdominal exam: Present: soft, normal bowel sounds. Absent: distended, ten derness, guarding, rebound, rigid Extremities exam: Present: normal inspection, full ROM, normal capillary refill. Absent: tenderness, pedal edema, joint swelling, calf tenderness Back exam: Present: normal inspection Neurological exam: Present: alert, oriented X3, CN II-XII intact Psychiatric exam: Present: normal affect, normal mood Skin exam: Present: warm, dry, intact, normal color. Absent: rash Course Vital Signs 03/02/24 03/02/24 11:55 15:44 Temperature 97.4 F L 98.7 F Pulse Rate 90 66 Respiratory 18 16 Rate Blood Pressure 140/104 119/75 O2 Sat by Pulse 100 100 Oximetry Medical Decision Making - Medical Decision Making Was pt. sent in by a medical professional or institution ([facility], [employer] [facility], urgent care, hospital, or custodial...) When possible be specific @ -No Did you speak to anyone other than the patient for history (EMS, parent, family, police, friend...)? What history was obtained from this source @ -No Did you review nursing and triage notes (agree or disagree)? Why? @ -I reviewed and agree with nursing and triage notes Were old charts reviewed (outside hosp., previous admission, EMS record, old EKG, old radiological studies, urgent care reports/EKG's, custodial records)? Report findings @ -No old charts were reviewed Differential Diagnosis (chest pain, altered mental status, abdominal pain women, abdominal pain men, vaginal bleeding, weakness, fever, dyspnea, syncope, headache, dizziness, GI bleed, back pain, seizure, CVA, palpatations, mental health, musculoskeletal)? @ -Differential Musculoskeletal Muscular strain, contusion, ligament sprain, fracture, arthritis, septic arthritis, bursitis, cellulitis, muscle spasm, nerve compression, DVT, arterial occlusion, herpes zoster, electrolyte abnormality, tumor.... This is not meant to be in all inclusive list EKG interpreted by me (3pts min.). @Not done X-rays interpreted by me (1pt min.). @ -None done CT interpreted by me (1pt min.). @ -None done U/S interpreted by me (1pt. min.). @ -None done What testing was considered but not performed or refused? (CT, X-rays, U/S, labs)? Why? @ -None What meds were considered but not given or refused? Why? @ -None Did you discuss the management of the patient with other professionals (professionals i.e. DrIqra, PA, [employer], lab, RT, psych nurse, addiction social worker, waredresser, teacher, giving officer, case preparer and liner)? Give summary @ -No Was smoking cessation discussed for >3mins.? @ -No Was critical care preformed (if so, how long)? @ -No Were there social determinants of health that impacted care today? How? (Homelessness, low income, unemployed, alcoholism, drug addiction, transportation, low edu. Level, literacy, decrease access to med. care, longterm, rehab)? @ -No Was there de-escalation of care discussed even if they declined (Discuss DNR or withdrawal of care, Hospice)? DNR status @ -No What co-morbidities impacted this encounter? (DM, HTN, Smoking, COPD, CAD, Cancer, CVA, ARF, Chemo, Hep., AIDS, mental health diagnosis, sleep apnea, morbid obesity)? @ -None Was patient admitted / discharged? Hospital course, mention meds given and route, prescriptions, significant lab abnormalities, going to OR and other pertinent info. @ -Upon arrival patient seen and evaluated in room 14. Thorough history and physical exam was performed. Patient was given Norflex, Toradol and a liter bolus normal saline. Laboratory studies are conducted and reviewed. Results are discussed with the patient. She feels improved at this time and is ready to go home. Patient will be sent home with a prescription for a Flexeril starter pack. Instructed to take these medications as directed. Follow-up with her doctor for reevaluation and return for any new or worsening symptoms. Patient agreeable to plan was discharged in stable condition Undiagnosed new problem with uncertain prognosis? @ -No Drug Therapy requiring intensive monitoring for toxicity (Heparin, Nitro, Insulin, Cardizem)? @ -No Were any procedures done? @ -No Diagnosis/symptom? @ -Acute myalgias, dehydration Acute, or Chronic, or Acute on Chronic? @ -Acute Uncomplicated (without systemic symptoms) or Complicated (systemic symptoms)? @ -Complicated Side effects of treatment? @ -No Exacerbation, Progression, or Severe Exacerbation? @ -No Poses a threat to life or bodily function? How? (Chest pain, [place], [place], pneumonia, PE, COPD, DKA, ARF, appy, cholecystitis, CVA, Diverticulitis, Homicidal, Suicidal, threat to staff... and all critical care pts) @ -No - Lab Data Result diagrams: 03/02/24 13:03 03/02/24 13:03 Lab Results 03/02/24 03/02/24 Range/Units 13:03 13:03 WBC 11.5 H (3.8-10.6) k/uL RBC 4.42 (3.80-5.40) m/uL Hgb 13.3 (11.4-16.0) gm/dL Hct 40.9 (34.0-46.0) % MCV 92.4 (80.0-100.0) fL MCH 30.1 (25.0-35.0) pg MCHC 32.6 (31.0-37.0) g/dL RDW 12.8 (11.5-15.5) % Plt Count 291 (150-450) k/uL MPV 8.1 Neutrophils % 71 % Lymphocytes % 21 % Monocytes % 4 % Eosinophils % 2 % Basophils % 1 % Neutrophils # 8.2 H (1.3-7.7) k/uL Lymphocytes # 2.4 (1.0-4.8) k/uL Monocytes # 0.5 (0-1.0) k/uL Eosinophils # 0.3 (0-0.7) k/uL Basophils # 0.1 (0-0.2) k/uL Sodium 136 L (137-145) mmol/L Potassium 4.3 (3.5-5.1) mmol/L Chloride 103 (98-107) mmol/L Carbon Dioxide 28 (22-30) mmol/L Anion Gap 5 mmol/L BUN 8 (7-17) mg/dL Creatinine 0.71 (0.52-1.04) mg/dL Est GFR (CKD-EPI)AfAm >90 (>60 ml/min/1.73 sqM) Est GFR (CKD-EPI)NonAf >90 (>60 ml/min/1.73 sqM) Glucose 96 (74-99) mg/dL Calcium 9.6 (8.4-10.2) mg/dL Magnesium 1.8 (1.6-2.3) mg/dL Total Bilirubin 0.5 (0.2-1.3) mg/dL AST 33 (14-36) U/L ALT 36 H (4-34) U/L Alkaline Phosphatase 82 (38-126) U/L Total Protein 7.6 (6.3-8.2) g/dL Albumin 4.8 (3.5-5.0) g/dL TSH 2.570 (0.465-4.680) mIU/L Disposition Clinical Impression: Muscle spasm Disposition: HOME SELF-CARE Condition: Stable Instructions (If sedation given, give patient instructions): Muscle Spasm (ED) Additional Instructions: Please take the muscle relaxer as directed. Follow-up with your primary care doctor. If your symptoms persist you may need further workup. Return for any new or worsening symptoms Prescriptions: Cyclobenzaprine [Flexeril] 10 mg PO TID PRN #30 tab PRN Reason: Muscle Spasm Is patient prescribed a controlled substance at d/c from ED?: No Referrals: None,Stated [Primary Care Provider] - 1-2 days Time of Disposition: 15:39
[2024-03-02 16:32] VITALS: BP 119/75; PULSE 66; RESP 16; TEMP 98.7
== END 2024-03-02 15:51 | disposition home or self-care (01) ==
LOC: EC 11:53
DX: M62.838 Other muscle spasm (principal); E86.0 Dehydration; Z91.040 Latex allergy status
CPT/HCPCS: 36415; 80053; 84443; 83735; 85025; 99283; 96374; 96361; 96372; J2360; J1885